=== PATIENT | male | born 1990 | race Caucasian/White ===

== ENCOUNTER 2021-05-26 09:08 | Emergency (ER) | payer BC ==
[~2021-05-26] VITALS: Ht 182.9 cm; Wt 99.3 kg
[2021-05-26 09:12] VITALS: BP 157/94
--- NOTE | 2021-05-26 09:17 | NUR ---
Patient ambulated to bed 8.
[2021-05-26] MEDS ORDERED: ONDANSETRON 4 MG/2 ML VIAL IVP ONE (09:25)
[2021-05-26] MEDS ORDERED: MORPHINE SULFATE 10 MG/ML VIAL IVP ONE (09:25)
--- NOTE | 2021-05-26 09:37 | NUR ---
X-Ray at bedside.
--- NOTE | 2021-05-26 09:47 | NUR ---
31 Y/O M, PATIENT PRESENTS TO ED WITH L ELBOW PAIN AFTER FALLING ON L ARM POST FOOTBALL SPORTS INJURY, SENSATIONS INTACT, PULSE IS STRONG AND STEADY. PT DENIES ANY HEAD/NECK INJURY, LOC OR SYNCOPE. DENIES N/V/D; SKIN IS PINK/WARM/DRY, AROUND SITE OF INJURY, NO LAC OR ABRASION, L ELBOW DOES HAVE SWELLING AND REDNESS; AAOX4 WITH EVEN AND STEADY GAIT; LUNGS CLEAR BL; HR EVEN AND REGULAR; PT DENIES ANY FEVER, CP, SOB, OR COUGH AT THIS TIME; PATIENT STATES PAIN OF 10/10 AT THIS TIME; PATIENT POSITIONED FOR COMFORT; HOB ELEVATED; BEDRAILS UP X2; BED DOWN. ER MD MADE AWARE OF PT STATUS. PMH: DENIES MED: DENIES NKA
[2021-05-26] MEDS ORDERED: MIDAZOLAM 2 MG/2 ML VIAL IVP ONE (09:50)
--- NOTE | 2021-05-26 10:15 | NUR ---
ELLYND IN ROOM FOR PROCEDURE AT THIS TIME
--- NOTE | 2021-05-26 10:18 | NUR ---
X-Ray at bedside.
--- NOTE | 2021-05-26 10:37 | NUR ---
PT PLACED IN LONG ARM POSTERIOR SPLINT AND WRAPPED WITH 4" NYA WRAPS X3. PT ALSO PLACED IN LEFT ARM SLING. [facility] WNL BEFORE AND AFTER ERMD NOTIFIED.
[2021-05-26] MEDS ORDERED: IBUP-2213 PO (10:48)
[2021-05-26 11:14] VITALS: BP 138/88
--- NOTE | 2021-05-26 11:14 | NUR ---
Patient discharged with v/s stable. Written and verbal after care instructions given and explained. Patient alert, oriented and verbalized understanding of instructions. Wheel Chair Assisted with SPOUSE to car. All questions addressed prior to discharge. ID band removed. Patient advised to follow up with PMD. Rx of MOTRIN (SCRIPT) given. Patient educated on indication of medication including possible reaction and side effects. Opportunity to ask questions provided and answered.
== END 2021-05-26 11:19 | disposition home or self-care (01) ==
LOC: MED 09:08
DX: S53.105A Unspecified dislocation of left ulnohumeral joint, initial encounter (principal); Z79.899 Other long term (current) drug therapy; W18.30XA Fall on same level, unspecified, initial encounter; Y93.61 Activity, american tackle football; Y92.89 Other specified places as the place of occurrence of the external cause; Y99.8 Other external cause status
CPT/HCPCS: 24600; 73070; 73080; 96374; 96375; 99284; J2250; J2270; J2405; Q0092

== ENCOUNTER 2023-07-31 13:30 | Emergency (ER) | payer SELFPAY ==
[~2023-07-31] VITALS: Ht 182.9 cm; Wt 99.8 kg
[~2023-07-31 13:30] MED LIST: IBUP-2213 PO
[2023-07-31 13:58] VITALS: BP 152/93; PULSE 75; RESP 20; TEMP 98.7; O2SAT 100
[2023-07-31] MEDS ORDERED: ONDA-188 SL (14:30)
[2023-07-31] MEDS ORDERED: BPM/473S94 PO (14:30)
[2023-07-31] MEDS ORDERED: ALBU0.0912 INH (14:30)
[2023-07-31] MEDS ORDERED: IBUP-2213 PO (14:30)
[2023-07-31] MEDS ORDERED: DEXAMETHASONE 10 MG/ML VIAL IM ONE (14:45)
[2023-07-31 15:29] LABS: FLU A ANTIGEN negative (NEGATIVE); FLU B ANTIGEN NEGATIVE (NEGATIVE)
== END 2023-07-31 14:58 | disposition home or self-care (01) ==
LOC: MED 13:30
DX: U07.1 COVID-19 (principal); Z79.899 Other long term (current) drug therapy
CPT/HCPCS: 87426; 87804; 96372; 99283; J1100